=== PATIENT | male | born 1950 | race Caucasian/White ===

== ENCOUNTER 2022-07-11 13:21 | Inpatient (IN) | payer BC, MEDICAID ==
[~2022-07-11] VITALS: Ht 170.2 cm; Wt 69.4 kg
[~2022-07-11 13:21] MED LIST: DOCU-138 PO; METH500T PO; METO-293 PO; OMEP20CA4 PO; SITA1TAB4 PO; TAMS-11 PO; coumadin; insulin
[2022-07-11] MEDS ORDERED: LEVOFLOXACIN 250MG PREMIX 50 ML IV ONE (15:30)
[2022-07-11] MEDS ORDERED: SODIUM CHLORIDE 0.9% 1000ML BAG (SEPSIS BOLUS) IV ONE (15:30)
[2022-07-11 15:35] LABS: BASOPHILS % 0.3 % (0.0-2.0); EOSINOPHILS % 0.6 % (0.0-5.0); HEMOGLOBIN. 7.3 g/dL (14.0-18.0); LYMPHOCYTES % 9.3 % (20.0-50.0); MEAN CORPUSCULAR HEMOGLOBIN 27.4 pg (28.0-32.0); MEAN CORPUSCULAR VOLUME 86.4 fL (80.0-94.0); MEAN PLATELET VOLUME 10.2 fl (7.4-10.4); MONOCYTES % 4.7 % (2.0-8.0); NEUTROPHILS % 85.1 % (40.0-76.0); PLATELET 79 x1000/uL (130-400); RED BLOOD CELL COUNT 2.66 mill/uL (4.7-6.1)
[2022-07-11 15:41] LABS: BG BASE EXCESS -8.5 mmol/L (-2.0-2.0); BG CARBOXYHEMOGLOBIN 0.2 % (0.5-1.5); BG DEOXYHEMOGLOBIN 7.5 % (0.0-5.0); BG FRACTION INSPIRED OXYGEN 21; BG HCO3 ACT 17.5 mmol/L (22.0-26.0); BG METHEMOGLOBIN 1.2 % (0.0-1.5); BG OXYGEN SATURATION 92.4 % (92.0-98.5); BG OXYHEMOGLOBIN 91.1 % (94.0-97.0); BG PCO2 38.1 mmHg (35.0-45.0); BG PH 7.281 (7.350-7.450); BG PO2 79.8 mmHg (75.0-100.0); BG SAMPLE SITE RIGHT RADIAL; BG TOTAL HEMOGLOBIN 8.5 g/dL (12.0-18.0); BG VENT MODE ROOM AIR
[2022-07-11 15:43] LABS: CHLORIDE 119 mEq/L (98-107)
[2022-07-11] MEDS ORDERED: DOPAMINE 400MG/250ML PREMIX 250 ML IV ONE (15:45)
[2022-07-11 15:52] LABS: INR 1.2
[2022-07-11] MEDS ORDERED: SODIUM BICARBONATE 8.4% 1 MEQ/ML 50ML SYR IV ONE (16:00)
[2022-07-11] MEDS ORDERED: MORPHINE SULFATE 2 MG/ML CPJ (NOT FOR IM USE) IV PRN (16:15)
[2022-07-11] MEDS ORDERED: ONDANSETRON HCL 4MG/2ML INJ IV PRN (16:15)
[2022-07-11] MEDS ORDERED: NALOXONE HCL 0.4MG/ML VIAL IV PRN (16:30)
[2022-07-11] MEDS ORDERED: DOPAMINE 800MG PREMIX (DOUBLE) 250 ML IV PRN ×2 (16:30→23:45)
[2022-07-11] MEDS: SODIUM CHLORIDE 0.9% 1,000 ML IV SCH (16:30)
[2022-07-11] MEDS ORDERED: PIPERACILLIN/TAZ 3.375G PREMIX 50 ML IV NR (16:30)
[2022-07-11] MEDS ORDERED: VANCOMYCIN 1500MG in DEXTROSE 5% WATER 250ML IV NR (17:00)
[2022-07-11] MEDS ORDERED: SODIUM BICARBONATE 8.4% 1 MEQ/ML 50ML SYR IV NR (19:00)
[2022-07-11 21:36] LABS: T4 FREE 1.32 ng/dL (0.76-1.46)
[2022-07-12] VITALS (62 sets, daily range): BP systolic 103–154; BP diastolic 47–80
[2022-07-12] MEDS ORDERED: MIDAZOLAM HCL 5 MG/5 ML VIAL IV ONE (02:00)
[2022-07-12] MEDS ORDERED: SUCCINYLCHOLINE CHLORIDE 200MG/10ML IV ONE ×2 (02:00→08:28)
[2022-07-12] MEDS ORDERED: FENTANYL 2500MCG/250ML PMX 250 ML IV ONE (02:00)
[2022-07-12] MEDS ORDERED: MIDAZOLAM HCL 2 MG/2 ML VIAL IV NR (02:15)
[2022-07-12] MEDS ORDERED: FENTANYL 2500MCG/250ML PMX 250 ML IV NR (02:15)
[2022-07-12 02:30] LABS: BG BASE EXCESS -8.1 mmol/L (-2.0-2.0); BG CARBOXYHEMOGLOBIN 0.8 % (0.5-1.5); BG FRACTION INSPIRED OXYGEN 40; BG HCO3 ACT 17.3 mmol/L (22.0-26.0); BG METHEMOGLOBIN 0.1 % (0.0-1.5); BG OXYHEMOGLOBIN 94.1 % (94.0-97.0); BG PCO2 34.7 mmHg (35.0-45.0); BG PH 7.315 (7.350-7.450); BG PO2 95.6 mmHg (75.0-100.0); BG SAMPLE SITE RIGHT RADIAL; BG TOTAL HEMOGLOBIN 9.5 g/dL (12.0-18.0); BG VENT MODE VENT - AC
[2022-07-12] MEDS ORDERED: SODI650T MT (03:53)
[2022-07-12] MEDS ORDERED: FAMO20TA8 MT (03:53)
[2022-07-12] MEDS ORDERED: AMLO10TA80 MT (03:53)
[2022-07-12] MEDS ORDERED: CARV25TA47 MT (03:53)
[2022-07-12] MEDS ORDERED: HYDR-4135 MT (03:53)
[2022-07-12] MEDS ORDERED: FURO40TA5 MT (03:53)
[2022-07-12] MEDS ORDERED: *PATIENT'S OWN MEDICATION STORAGE XX SCH (04:00)
[2022-07-12] MEDS ORDERED: FENTANYL 2500MCG/250ML PMX 250 ML IV PRN (04:15)
[2022-07-12] MEDS ORDERED: DEXTROSE 50% WATER 50ML SYRINGE IV PRN (04:15)
[2022-07-12 05:35] LABS: HEMATOCRIT. 26.7 % (42.0-52.0); HEMOGLOBIN. 8.7 g/dL (14.0-18.0); MEAN CORPUSCULAR HEMOGLOBIN 27.7 pg (28.0-32.0); MEAN CORPUSCULAR VOLUME 85.4 fL (80.0-94.0); MEAN PLATELET VOLUME 10.6 fl (7.4-10.4); PLATELET 122 x1000/uL (130-400); RED BLOOD CELL COUNT 3.13 mill/uL (4.7-6.1); RED CELL DISTRIBUTION WIDTH 15.6 % (11.6-14.6)
[2022-07-12] MEDS: BLOOD SUGAR DIAGNOSTIC STRIP TEST SCH ×4 (06:00→23:44)
[2022-07-12] MEDS: INSULIN LISPRO 100 UNITS/ML SUBCUT SCH ×4 (06:00→23:44)
[2022-07-12 06:18] LABS: CLARITY URINE TURBID (CLEAR); COLOR URINE DARK YELLOW (YELLOW); KETONES URINE TRACE (NEGATIVE); LEUKOCYTE ESTERASE URINE 3+ (NEGATIVE); NITRITE URINE NEGATIVE (NEGATIVE); OCCULT BLOOD URINE 3+ (NEGATIVE); PROTEIN URINE 3+ (NEGATIVE); SPECIFIC GRAVITY URINE 1.019 (1.005-1.030)
[2022-07-12 06:54] LABS: CHLORIDE 117 mEq/L (98-107)
[2022-07-12] MEDS ORDERED: DOPAMINE 400MG/250ML PREMIX 250 ML IV PRN (07:45)
[2022-07-12] MEDS ORDERED: ETOMIDATE 2MG/ML 10ML VIAL IV ONE (08:28)
[2022-07-12] MEDS ORDERED: SODIUM POLYSTYRENE SULFONATE 15 G/60 ML BOT PO NR (08:30)
[2022-07-12] MEDS ORDERED: PIPERACILLIN/TAZOBACTAM 3.375 G in DEXTROSE 5% WATER 50 ML IV SCH (09:00)
[2022-07-12] MEDS: FUROSEMIDE 40MG/4ML VIAL IVP SCH ×2 (09:06→17:13)
[2022-07-12] MEDS: CITRIC ACID/SODIUM CITRATE SOLN 30ML UDC PO SCH ×3 (09:06→17:13)
[2022-07-12 09:32] LABS: BG CARBOXYHEMOGLOBIN 0.1 % (0.5-1.5); BG DEOXYHEMOGLOBIN 5.2 % (0.0-5.0); BG FRACTION INSPIRED OXYGEN 40; BG HCO3 ACT 17.3 mmol/L (22.0-26.0); BG METHEMOGLOBIN 0.3 % (0.0-1.5); BG OXYGEN SATURATION 94.8 % (92.0-98.5); BG OXYHEMOGLOBIN 94.4 % (94.0-97.0); BG PCO2 29.8 mmHg (35.0-45.0); BG PH 7.381 (7.350-7.450); BG SAMPLE SITE RIGHT RADIAL; BG TOTAL HEMOGLOBIN 8.6 g/dL (12.0-18.0); BG VENT MODE VENT - AC
[2022-07-12 11:34] LABS: T4 FREE 1.38 ng/dL (0.76-1.46)
[2022-07-12 12:02] LABS: PLATELET ESTIMATE DECREASED
[2022-07-12] MEDS: PIPERACILLIN/TAZOBACTAM 3.375 G in DEXTROSE 5% WATER 50 ML IV SCH ×2 (12:35→23:09)
[2022-07-12 13:33] LABS: BG BASE EXCESS -6.7 mmol/L (-2.0-2.0); BG CARBOXYHEMOGLOBIN 0.5 % (0.5-1.5); BG DEOXYHEMOGLOBIN 6.8 % (0.0-5.0); BG FRACTION INSPIRED OXYGEN 40; BG HCO3 ACT 18.8 mmol/L (22.0-26.0); BG METHEMOGLOBIN 0.5 % (0.0-1.5); BG OXYGEN SATURATION 93.1 % (92.0-98.5); BG OXYHEMOGLOBIN 92.2 % (94.0-97.0); BG PCO2 37.3 mmHg (35.0-45.0); BG PO2 70.3 mmHg (75.0-100.0); BG SAMPLE SITE RIGHT RADIAL; BG TOTAL HEMOGLOBIN 8.7 g/dL (12.0-18.0); BG VENT MODE VENT - CPAP
[2022-07-12] MEDS: PANTOPRAZOLE 40MG DR TABLET PO SCH (21:33)
[2022-07-13] VITALS (86 sets, daily range): BP systolic 100–179; BP diastolic 50–120
[2022-07-13 05:31] LABS: HEMATOCRIT. 23.4 % (42.0-52.0); HEMOGLOBIN. 7.5 g/dL (14.0-18.0); MEAN CORPUSCULAR HEMOGLOBIN 27.7 pg (28.0-32.0); MEAN CORPUSCULAR VOLUME 85.9 fL (80.0-94.0); MEAN PLATELET VOLUME 10.8 fl (7.4-10.4); PLATELET 95 x1000/uL (130-400); RED BLOOD CELL COUNT 2.72 mill/uL (4.7-6.1); RED CELL DISTRIBUTION WIDTH 16.2 % (11.6-14.6)
[2022-07-13] MEDS: INSULIN LISPRO 100 UNITS/ML SUBCUT SCH ×3 (06:00→17:02)
[2022-07-13] MEDS: BLOOD SUGAR DIAGNOSTIC STRIP TEST SCH ×3 (06:03→17:02)
[2022-07-13] MEDS: PANTOPRAZOLE 40MG DR TABLET PO SCH ×2 (06:06→21:59)
[2022-07-13 07:43] LABS: PLATELET ESTIMATE DECREASED
[2022-07-13] MEDS ORDERED: SODIUM POLYSTYRENE SULFONATE 15 G/60 ML BOT PO NR (07:45)
[2022-07-13] MEDS: CITRIC ACID/SODIUM CITRATE SOLN 30ML UDC PO SCH ×3 (08:36→17:02)
[2022-07-13] MEDS: PIPERACILLIN/TAZOBACTAM 3.375 G in DEXTROSE 5% WATER 50 ML IV SCH ×2 (08:36→21:59)
[2022-07-13] MEDS: FUROSEMIDE 40MG/4ML VIAL IVP SCH ×2 (08:36→17:02)
[2022-07-13 12:11] LABS: HEPATITIS B SURFACE ANTIGEN NEGATIVE
[2022-07-13] MEDS ORDERED: ALBUTEROL (0.083%) 2.5MG/3ML NEB HHN PRN (14:00)
[2022-07-13] MEDS ORDERED: IPRATROPIUM BROMIDE (0.02%) 0.5MG/2.5ML NEB HHN PRN (14:00)
[2022-07-13] MEDS ORDERED: AMLODIPINE 5MG TABLET PO SCH (15:15)
[2022-07-13] MEDS: AMLODIPINE 5MG TABLET PO SCH (16:02)
[2022-07-13] MEDS ORDERED: VANCOMYCIN 750MG PREMIX 150 ML IV SCH (18:00)
[2022-07-13] MEDS: HYDRALAZINE HCL 25MG TABLET PO SCH (18:59)
[2022-07-13] MEDS: EPOETIN ALFA-EPBX 4,000 UNIT/ML VIAL SUBCUT SCH (21:59)
[2022-07-14] VITALS (10 sets, daily range): BP systolic 140–156; BP diastolic 48–74
[2022-07-14] MEDS: BLOOD SUGAR DIAGNOSTIC STRIP TEST SCH ×4 (00:03→17:28)
[2022-07-14] MEDS: INSULIN LISPRO 100 UNITS/ML SUBCUT SCH ×4 (06:00→17:28)
[2022-07-14 06:49] LABS: BASOPHILS % 0.7 % (0.0-2.0); EOSINOPHILS % 1.2 % (0.0-5.0); HEMATOCRIT. 21.7 % (42.0-52.0); HEMOGLOBIN. 7.4 g/dL (14.0-18.0); MEAN CORPUSCULAR HEMOGLOBIN 28.9 pg (28.0-32.0); MEAN CORPUSCULAR VOLUME 85.1 fL (80.0-94.0); MEAN PLATELET VOLUME 11.1 fl (7.4-10.4); MONOCYTES % 5.6 % (2.0-8.0); NEUTROPHILS % 84.5 % (40.0-76.0); PLATELET 61 x1000/uL (130-400); RED BLOOD CELL COUNT 2.55 mill/uL (4.7-6.1)
[2022-07-14] MEDS: AMLODIPINE 5MG TABLET PO SCH (08:18)
[2022-07-14] MEDS: PANTOPRAZOLE 40MG DR TABLET PO SCH ×2 (08:18→20:37)
[2022-07-14] MEDS: HYDRALAZINE HCL 25MG TABLET PO SCH ×2 (08:18→20:37)
[2022-07-14] MEDS: FUROSEMIDE 40MG/4ML VIAL IVP SCH ×2 (08:18→16:36)
[2022-07-14] MEDS: CITRIC ACID/SODIUM CITRATE SOLN 30ML UDC PO SCH (08:18)
[2022-07-14] MEDS: PIPERACILLIN/TAZOBACTAM 3.375 G in DEXTROSE 5% WATER 50 ML IV SCH ×2 (08:25→20:37)
[2022-07-14] MEDS ORDERED: VANCOMYCIN 750MG PREMIX 150 ML IV NR (10:00)
[2022-07-15] VITALS (10 sets, daily range): BP systolic 140–189; BP diastolic 49–89
[2022-07-15] MEDS: BLOOD SUGAR DIAGNOSTIC STRIP TEST SCH ×4 (00:22→17:16)
[2022-07-15] MEDS: INSULIN LISPRO 100 UNITS/ML SUBCUT SCH ×4 (06:00→17:16)
[2022-07-15] MEDS: PIPERACILLIN/TAZOBACTAM 3.375 G in DEXTROSE 5% WATER 50 ML IV SCH ×2 (08:33→21:02)
[2022-07-15] MEDS: PANTOPRAZOLE 40MG DR TABLET PO SCH ×2 (08:34→21:02)
[2022-07-15] MEDS: HYDRALAZINE HCL 25MG TABLET PO SCH ×2 (08:34→21:03)
[2022-07-15] MEDS: AMLODIPINE 5MG TABLET PO SCH (08:34)
[2022-07-15] MEDS: FUROSEMIDE 40MG/4ML VIAL IVP SCH ×2 (08:34→17:17)
[2022-07-15] MEDS ORDERED: VANCOMYCIN 500MG PREMIX 100 ML IV NR (21:00)
[2022-07-15] MEDS: GUAIFENESIN 600MG ER TABLET PO SCH (21:02)
[2022-07-15] MEDS: EPOETIN ALFA-EPBX 4,000 UNIT/ML VIAL SUBCUT SCH (21:02)
[2022-07-16] VITALS: BP 165/76
[2022-07-16] MEDS: BLOOD SUGAR DIAGNOSTIC STRIP TEST SCH ×4 (00:10→17:12)
[2022-07-16 04:00] VITALS: BP 144/55
[2022-07-16] MEDS: INSULIN LISPRO 100 UNITS/ML SUBCUT SCH ×4 (05:56→17:17)
[2022-07-16 06:48] LABS: BASOPHILS % 0.3 % (0.0-2.0); EOSINOPHILS % 2.1 % (0.0-5.0); HEMATOCRIT. 22.7 % (42.0-52.0); HEMOGLOBIN. 7.4 g/dL (14.0-18.0); LYMPHOCYTES % 7.9 % (20.0-50.0); MEAN CORPUSCULAR HEMOGLOBIN 27.9 pg (28.0-32.0); MEAN CORPUSCULAR VOLUME 85.7 fL (80.0-94.0); MEAN PLATELET VOLUME 10.7 fl (7.4-10.4); MONOCYTES % 8.9 % (2.0-8.0); NEUTROPHILS % 80.8 % (40.0-76.0); PLATELET 89 x1000/uL (130-400); RED BLOOD CELL COUNT 2.65 mill/uL (4.7-6.1)
[2022-07-16 08:00] VITALS: BP 148/64
[2022-07-16] MEDS: DOCUSATE SODIUM 100MG CAPSULE PO PRN (08:09)
[2022-07-16] MEDS: PANTOPRAZOLE 40MG DR TABLET PO SCH ×2 (08:09→20:28)
[2022-07-16] MEDS: FUROSEMIDE 40MG/4ML VIAL IVP SCH ×2 (08:10→17:20)
[2022-07-16] MEDS: PIPERACILLIN/TAZOBACTAM 3.375 G in DEXTROSE 5% WATER 50 ML IV SCH ×2 (08:21→20:28)
[2022-07-16] MEDS: GUAIFENESIN 600MG ER TABLET PO SCH ×2 (08:21→20:28)
[2022-07-16] MEDS: HYDRALAZINE HCL 25MG TABLET PO SCH ×2 (08:22→20:28)
[2022-07-16] MEDS: AMLODIPINE 5MG TABLET PO SCH (08:22)
[2022-07-16 12:00] VITALS: BP 145/58
[2022-07-16] MEDS: ALBUTEROL (0.083%) 2.5MG/3ML NEB HHN SCH ×2 (14:50→21:48)
[2022-07-16] MEDS: IPRATROPIUM BROMIDE (0.02%) 0.5MG/2.5ML NEB HHN SCH ×2 (14:50→21:49)
[2022-07-16 15:08] LABS: TOTAL IRON BINDING CAPACITY 283 ug/dL (250-450)
[2022-07-16 16:00] VITALS: BP 156/73
[2022-07-16 20:00] VITALS: BP 146/59
[2022-07-17] VITALS (14 sets, daily range): BP systolic 142–177; BP diastolic 57–76
[2022-07-17] MEDS: INSULIN LISPRO 100 UNITS/ML SUBCUT SCH ×4 (01:26→18:00)
[2022-07-17] MEDS: BLOOD SUGAR DIAGNOSTIC STRIP TEST SCH ×4 (01:26→18:00)
[2022-07-17] MEDS: IPRATROPIUM BROMIDE (0.02%) 0.5MG/2.5ML NEB HHN SCH ×4 (03:09→20:47)
[2022-07-17] MEDS: ALBUTEROL (0.083%) 2.5MG/3ML NEB HHN SCH ×4 (03:09→20:47)
[2022-07-17] MEDS: FUROSEMIDE 40MG/4ML VIAL IVP SCH ×2 (06:10→17:08)
[2022-07-17 07:16] LABS: INR 1.2; PARTIAL THROMBOPLASTIN TIME 36.5 sec (23.4-31.0); PROTHROMBIN TIME 12.7 sec (9.6-11.0)
[2022-07-17 07:22] LABS: BASOPHILS % 0.4 % (0.0-2.0); EOSINOPHILS % 3.2 % (0.0-5.0); HEMATOCRIT. 22.6 % (42.0-52.0); HEMOGLOBIN. 7.4 g/dL (14.0-18.0); LYMPHOCYTES % 8.6 % (20.0-50.0); MEAN CORPUSCULAR HEMOGLOBIN 27.6 pg (28.0-32.0); MEAN CORPUSCULAR VOLUME 84.2 fL (80.0-94.0); MONOCYTES % 8.8 % (2.0-8.0); PLATELET 94 x1000/uL (130-400); RED BLOOD CELL COUNT 2.68 mill/uL (4.7-6.1); RED CELL DISTRIBUTION WIDTH 15.7 % (11.6-14.6)
[2022-07-17] MEDS: PANTOPRAZOLE 40MG DR TABLET PO SCH ×2 (07:40→21:56)
[2022-07-17] MEDS ORDERED: ENOXAPARIN 30MG/0.3ML SYR SUBCUT SCH (09:00)
[2022-07-17] MEDS: HYDRALAZINE HCL 25MG TABLET PO SCH ×2 (09:00→21:56)
[2022-07-17] MEDS: AMLODIPINE 5MG TABLET PO SCH (09:00)
[2022-07-17] MEDS ORDERED: POTASSIUM CHLORIDE 20MEQ TABLET SR PO NR (09:45)
[2022-07-17] MEDS: GUAIFENESIN 600MG ER TABLET PO SCH ×2 (14:17→21:56)
[2022-07-18] VITALS (77 sets, daily range): BP systolic 121–185; BP diastolic 54–106
[2022-07-18] MEDS: PROPOFOL 10MG/ML 100ML 100 ML IV PRN ×4 (00:40→19:51)
[2022-07-18 01:57] LABS: BG BASE EXCESS 0.7 mmol/L (-2.0-2.0); BG CARBOXYHEMOGLOBIN 0.6 % (0.5-1.5); BG DEOXYHEMOGLOBIN 1.2 % (0.0-5.0); BG FRACTION INSPIRED OXYGEN 100; BG HCO3 ACT 26.4 mmol/L (22.0-26.0); BG METHEMOGLOBIN 0.2 % (0.0-1.5); BG OXYGEN SATURATION 98.8 % (92.0-98.5); BG PCO2 48.4 mmHg (35.0-45.0); BG PH 7.355 (7.350-7.450); BG PO2 162.4 mmHg (75.0-100.0); BG SAMPLE SITE RIGHT RADIAL; BG TOTAL HEMOGLOBIN 7.7 g/dL (12.0-18.0); BG VENT MODE VENT - AC
[2022-07-18 05:29] LABS: HEMATOCRIT. 21.4 % (42.0-52.0); MEAN CORPUSCULAR HEMOGLOBIN 27.8 pg (28.0-32.0); MEAN CORPUSCULAR VOLUME 85.6 fL (80.0-94.0); MEAN PLATELET VOLUME 9.8 fl (7.4-10.4); PLATELET 94 x1000/uL (130-400); RED CELL DISTRIBUTION WIDTH 15.7 % (11.6-14.6)
[2022-07-18] MEDS: INSULIN LISPRO 100 UNITS/ML SUBCUT SCH ×5 (05:55→23:59)
[2022-07-18] MEDS: BLOOD SUGAR DIAGNOSTIC STRIP TEST SCH ×5 (05:55→23:59)
[2022-07-18 07:14] LABS: HEMOGLOBIN. 6.9 g/dL (14.0-18.0)
[2022-07-18] MEDS: IPRATROPIUM BROMIDE (0.02%) 0.5MG/2.5ML NEB HHN SCH ×3 (08:31→20:34)
[2022-07-18] MEDS: ALBUTEROL (0.083%) 2.5MG/3ML NEB HHN SCH ×3 (08:31→20:34)
[2022-07-18] MEDS: FUROSEMIDE 40MG/4ML VIAL IVP SCH ×2 (09:28→18:07)
[2022-07-18] MEDS: AMLODIPINE 5MG TABLET PO SCH (09:28)
[2022-07-18] MEDS: HYDRALAZINE HCL 25MG TABLET PO SCH ×2 (09:28→21:47)
[2022-07-18] MEDS: PANTOPRAZOLE 40MG DR TABLET PO SCH (09:28)
[2022-07-18] MEDS ORDERED: SODIUM BICARBONATE 8.4% 1 MEQ/ML 50ML SYR IV ONE (10:21)
[2022-07-18] MEDS ORDERED: EPINEPHRINE 0.1MG/ML (1:10,000) 10ML SYR ONE (10:21)
[2022-07-18] MEDS ORDERED: DOPAMINE 400MG/250ML PREMIX 250 ML IV PRN (11:00)
[2022-07-18 12:20] LABS: PLATELET ESTIMATE SLIGHTLY DECREASED
[2022-07-18] MEDS ORDERED: CEFTRIAXONE 1 G PREMIX 50 ML IV SCH (12:30)
[2022-07-18] MEDS: PANTOPRAZOLE SODIUM 40 MG/VIAL IV SCH (12:42)
[2022-07-18] MEDS: GUAIFENESIN 200MG/10ML SUGAR FREE UDC NG SCH ×2 (12:42→18:07)
[2022-07-18] MEDS: CEFTRIAXONE 1,000 MG in DEXTROSE 5% WATER 50 ML IV SCH (15:00)
[2022-07-18 19:42] LABS: HEMATOCRIT 26.3 % (42.0-52.0); HEMOGLOBIN 8.6 g/dL (14.0-18.0)
[2022-07-18] MEDS ORDERED: LANSOPRAZOLE 15MG DR CAPSULE NG SCH (21:00)
[2022-07-18] MEDS: EPOETIN ALFA-EPBX 4,000 UNIT/ML VIAL SUBCUT SCH (21:51)
[2022-07-19] VITALS (60 sets, daily range): BP systolic 121–162; BP diastolic 49–79
[2022-07-19] MEDS: GUAIFENESIN 200MG/10ML SUGAR FREE UDC NG SCH ×4 (00:01→17:28)
[2022-07-19] MEDS: ALBUTEROL (0.083%) 2.5MG/3ML NEB HHN SCH ×4 (01:46→20:01)
[2022-07-19] MEDS: IPRATROPIUM BROMIDE (0.02%) 0.5MG/2.5ML NEB HHN SCH ×4 (01:46→20:01)
[2022-07-19] MEDS ORDERED: PROPOFOL 10MG/ML 100ML 100 ML IV PRN (04:00)
[2022-07-19] MEDS: INSULIN LISPRO 100 UNITS/ML SUBCUT SCH ×3 (05:16→17:28)
[2022-07-19] MEDS: BLOOD SUGAR DIAGNOSTIC STRIP TEST SCH ×3 (05:16→17:28)
[2022-07-19 06:01] LABS: HEMATOCRIT. 26.2 % (42.0-52.0); MEAN CORPUSCULAR HEMOGLOBIN 28.9 pg (28.0-32.0); MEAN PLATELET VOLUME 9.9 fl (7.4-10.4); PLATELET 106 x1000/uL (130-400); RED BLOOD CELL COUNT 3.12 mill/uL (4.7-6.1); RED CELL DISTRIBUTION WIDTH 15.9 % (11.6-14.6)
[2022-07-19] MEDS: PANTOPRAZOLE SODIUM 40 MG/VIAL IV SCH (08:27)
[2022-07-19] MEDS: FUROSEMIDE 40MG/4ML VIAL IVP SCH ×2 (08:27→17:27)
[2022-07-19] MEDS: AMLODIPINE 5MG TABLET PO SCH (08:28)
[2022-07-19] MEDS: HYDRALAZINE HCL 25MG TABLET PO SCH ×2 (08:28→21:00)
[2022-07-19 08:34] LABS: BG BASE EXCESS 1.1 mmol/L (-2.0-2.0); BG DEOXYHEMOGLOBIN 5.8 % (0.0-5.0); BG HCO3 ACT 25.5 mmol/L (22.0-26.0); BG METHEMOGLOBIN 0.3 % (0.0-1.5); BG OXYGEN SATURATION 94.1 % (92.0-98.5); BG OXYHEMOGLOBIN 92.9 % (94.0-97.0); BG PCO2 39.3 mmHg (35.0-45.0); BG PO2 68.4 mmHg (75.0-100.0); BG SAMPLE SITE RIGHT RADIAL; BG TOTAL HEMOGLOBIN 8.4 g/dL (12.0-18.0); BG VENT MODE VENT - AC
[2022-07-19] MEDS ORDERED: IPRATROPIUM/ALBUTEROL 0.5-3(2.5)MG/3ML NEB HHN PRN (12:15)
[2022-07-19] MEDS: PROPOFOL 10MG/ML 100ML 100 ML IV PRN ×2 (12:27→18:40)
[2022-07-19 13:31] LABS: PLATELET ESTIMATE SLIGHTLY DECREASED
[2022-07-19] MEDS: CEFTRIAXONE 1,000 MG in DEXTROSE 5% WATER 50 ML IV SCH (14:57)
[2022-07-20] VITALS (34 sets, daily range): BP systolic 140–167; BP diastolic 47–106
[2022-07-20] MEDS: IPRATROPIUM BROMIDE (0.02%) 0.5MG/2.5ML NEB HHN SCH ×3 (02:09→14:05)
[2022-07-20] MEDS: ALBUTEROL (0.083%) 2.5MG/3ML NEB HHN SCH ×3 (02:09→14:05)
[2022-07-20 05:39] LABS: HEMATOCRIT. 25.5 % (42.0-52.0); HEMOGLOBIN. 8.3 g/dL (14.0-18.0); MEAN CORPUSCULAR HEMOGLOBIN 27.9 pg (28.0-32.0); MEAN CORPUSCULAR VOLUME 85.6 fL (80.0-94.0); MEAN PLATELET VOLUME 9.8 fl (7.4-10.4); PLATELET 121 x1000/uL (130-400); RED BLOOD CELL COUNT 2.98 mill/uL (4.7-6.1); RED CELL DISTRIBUTION WIDTH 15.8 % (11.6-14.6)
[2022-07-20] MEDS: GUAIFENESIN 200MG/10ML SUGAR FREE UDC NG SCH ×4 (06:00→18:00)
[2022-07-20] MEDS: INSULIN LISPRO 100 UNITS/ML SUBCUT SCH ×4 (06:00→18:00)
[2022-07-20] MEDS: BLOOD SUGAR DIAGNOSTIC STRIP TEST SCH ×4 (06:53→18:00)
[2022-07-20] MEDS: FUROSEMIDE 40MG/4ML VIAL IVP SCH ×2 (08:30→16:27)
[2022-07-20 08:41] LABS: BG BASE EXCESS -0.1 mmol/L (-2.0-2.0); BG CARBOXYHEMOGLOBIN 0.3 % (0.5-1.5); BG FRACTION INSPIRED OXYGEN 45; BG HCO3 ACT 24.3 mmol/L (22.0-26.0); BG METHEMOGLOBIN 0.7 % (0.0-1.5); BG PCO2 38.5 mmHg (35.0-45.0); BG PH 7.418 (7.350-7.450); BG SAMPLE SITE RIGHT RADIAL; BG TOTAL HEMOGLOBIN 9.6 g/dL (12.0-18.0); BG VENT MODE VENT - AC
[2022-07-20] MEDS: HYDRALAZINE HCL 25MG TABLET PO SCH ×2 (09:52→21:19)
[2022-07-20] MEDS: AMLODIPINE 5MG TABLET PO SCH (09:52)
[2022-07-20] MEDS: PANTOPRAZOLE SODIUM 40 MG/VIAL IV SCH (09:53)
[2022-07-20 12:45] LABS: PLATELET ESTIMATE DECREASED
[2022-07-20 13:11] LABS: BG BASE EXCESS -1.3 mmol/L (-2.0-2.0); BG CARBOXYHEMOGLOBIN 0.3 % (0.5-1.5); BG DEOXYHEMOGLOBIN 2.9 % (0.0-5.0); BG FRACTION INSPIRED OXYGEN 40; BG HCO3 ACT 23.7 mmol/L (22.0-26.0); BG METHEMOGLOBIN 0.3 % (0.0-1.5); BG OXYGEN SATURATION 97.1 % (92.0-98.5); BG OXYHEMOGLOBIN 96.5 % (94.0-97.0); BG PCO2 40.7 mmHg (35.0-45.0); BG PH 7.383 (7.350-7.450); BG PO2 98.6 mmHg (75.0-100.0); BG SAMPLE SITE RIGHT RADIAL; BG TOTAL HEMOGLOBIN 9.4 g/dL (12.0-18.0); BG VENT MODE VENT - CPAP
[2022-07-20] MEDS: CEFTRIAXONE 1,000 MG in DEXTROSE 5% WATER 50 ML IV SCH (16:28)
[2022-07-21] VITALS (25 sets, daily range): BP systolic 121–162; BP diastolic 45–112
[2022-07-21] MEDS: BLOOD SUGAR DIAGNOSTIC STRIP TEST SCH ×4 (00:01→21:59)
[2022-07-21] MEDS: GUAIFENESIN 200MG/10ML SUGAR FREE UDC NG SCH ×4 (00:13→23:05)
[2022-07-21] MEDS: INSULIN LISPRO 100 UNITS/ML SUBCUT SCH ×4 (01:00→21:00)
[2022-07-21 05:41] LABS: BASOPHILS % 0.6 % (0.0-2.0); EOSINOPHILS % 7.1 % (0.0-5.0); HEMATOCRIT. 26.4 % (42.0-52.0); HEMOGLOBIN. 8.6 g/dL (14.0-18.0); LYMPHOCYTES % 7.9 % (20.0-50.0); MEAN CORPUSCULAR VOLUME 85.7 fL (80.0-94.0); MEAN PLATELET VOLUME 9.3 fl (7.4-10.4); MONOCYTES % 7.7 % (2.0-8.0); NEUTROPHILS % 76.7 % (40.0-76.0); PLATELET 158 x1000/uL (130-400); RED BLOOD CELL COUNT 3.07 mill/uL (4.7-6.1); RED CELL DISTRIBUTION WIDTH 16.2 % (11.6-14.6)
[2022-07-21] MEDS: FUROSEMIDE 40MG/4ML VIAL IVP SCH (06:15)
[2022-07-21] MEDS ORDERED: BLOOD SUGAR DIAGNOSTIC STRIP TEST SCH (07:50)
[2022-07-21] MEDS: PANTOPRAZOLE SODIUM 40 MG/VIAL IV SCH (09:26)
[2022-07-21] MEDS: AMLODIPINE 5MG TABLET PO SCH (09:27)
[2022-07-21] MEDS: HYDRALAZINE HCL 25MG TABLET PO SCH ×2 (09:28→22:00)
[2022-07-21] MEDS: IPRATROPIUM BROMIDE (0.02%) 0.5MG/2.5ML NEB HHN SCH ×2 (13:25→22:35)
[2022-07-21] MEDS: ALBUTEROL (0.083%) 2.5MG/3ML NEB HHN SCH ×2 (13:26→22:36)
[2022-07-21] MEDS: CEFTRIAXONE 1,000 MG in DEXTROSE 5% WATER 50 ML IV SCH (16:55)
[2022-07-21] MEDS ORDERED: IPRATROPIUM BROMIDE (0.02%) 0.5MG/2.5ML NEB HHN PRN (17:45)
[2022-07-21] MEDS ORDERED: ALBUTEROL (0.083%) 2.5MG/3ML NEB HHN PRN (17:45)
[2022-07-22] VITALS (16 sets, daily range): BP systolic 113–148; BP diastolic 40–60
[2022-07-22] MEDS: IPRATROPIUM BROMIDE (0.02%) 0.5MG/2.5ML NEB HHN SCH ×4 (03:35→21:03)
[2022-07-22] MEDS: ALBUTEROL (0.083%) 2.5MG/3ML NEB HHN SCH ×4 (03:36→21:04)
[2022-07-22] MEDS: ACETAMINOPHEN 325MG TABLET PO PRN (06:20)
[2022-07-22] MEDS: GUAIFENESIN 200MG/10ML SUGAR FREE UDC NG SCH ×4 (06:20→23:04)
[2022-07-22] MEDS: INSULIN LISPRO 100 UNITS/ML SUBCUT SCH ×4 (07:40→21:35)
[2022-07-22] MEDS: BLOOD SUGAR DIAGNOSTIC STRIP TEST SCH ×4 (08:08→21:23)
[2022-07-22] MEDS: PANTOPRAZOLE SODIUM 40 MG/VIAL IV SCH (09:07)
[2022-07-22] MEDS: FUROSEMIDE 40MG/4ML VIAL IVP SCH (09:09)
[2022-07-22] MEDS: HYDRALAZINE HCL 25MG TABLET PO SCH ×2 (09:09→21:24)
[2022-07-22] MEDS: AMLODIPINE 5MG TABLET PO SCH (09:09)
[2022-07-22 11:24] LABS: BASOPHILS % 0.5 % (0.0-2.0); EOSINOPHILS % 5.6 % (0.0-5.0); HEMATOCRIT. 24.3 % (42.0-52.0); HEMOGLOBIN. 7.9 g/dL (14.0-18.0); LYMPHOCYTES % 7.1 % (20.0-50.0); MEAN CORPUSCULAR HEMOGLOBIN 27.7 pg (28.0-32.0); MEAN CORPUSCULAR VOLUME 85.1 fL (80.0-94.0); MEAN PLATELET VOLUME 8.5 fl (7.4-10.4); MONOCYTES % 8.7 % (2.0-8.0); NEUTROPHILS % 78.1 % (40.0-76.0); PLATELET 152 x1000/uL (130-400); RED BLOOD CELL COUNT 2.86 mill/uL (4.7-6.1); RED CELL DISTRIBUTION WIDTH 15.9 % (11.6-14.6)
[2022-07-22] MEDS: CEFTRIAXONE 1,000 MG in DEXTROSE 5% WATER 50 ML IV SCH (14:39)
[2022-07-23 00:20] VITALS: BP 91/42
[2022-07-23] MEDS: ALBUTEROL (0.083%) 2.5MG/3ML NEB HHN SCH ×4 (03:45→19:43)
[2022-07-23] MEDS: IPRATROPIUM BROMIDE (0.02%) 0.5MG/2.5ML NEB HHN SCH ×4 (03:45→19:43)
[2022-07-23 04:00] VITALS: BP 148/51
[2022-07-23] MEDS: GUAIFENESIN 200MG/10ML SUGAR FREE UDC NG SCH ×4 (05:02→23:12)
[2022-07-23 06:27] LABS: BASOPHILS % 0.5 % (0.0-2.0); EOSINOPHILS % 6.4 % (0.0-5.0); HEMATOCRIT. 25.8 % (42.0-52.0); HEMOGLOBIN. 8.3 g/dL (14.0-18.0); LYMPHOCYTES % 8.9 % (20.0-50.0); MEAN CORPUSCULAR HEMOGLOBIN 27.5 pg (28.0-32.0); MEAN CORPUSCULAR VOLUME 85.4 fL (80.0-94.0); MEAN PLATELET VOLUME 9.1 fl (7.4-10.4); MONOCYTES % 8.7 % (2.0-8.0); NEUTROPHILS % 75.5 % (40.0-76.0); PLATELET 166 x1000/uL (130-400); RED BLOOD CELL COUNT 3.02 mill/uL (4.7-6.1); RED CELL DISTRIBUTION WIDTH 16.1 % (11.6-14.6)
[2022-07-23] MEDS: BLOOD SUGAR DIAGNOSTIC STRIP TEST SCH ×4 (06:40→21:03)
[2022-07-23] MEDS: INSULIN LISPRO 100 UNITS/ML SUBCUT SCH ×4 (07:40→21:03)
[2022-07-23 08:08] VITALS: BP 131/54
[2022-07-23] MEDS: FUROSEMIDE 40MG/4ML VIAL IVP SCH (09:20)
[2022-07-23] MEDS: AMLODIPINE 5MG TABLET PO SCH (09:20)
[2022-07-23] MEDS: PANTOPRAZOLE SODIUM 40 MG/VIAL IV SCH (09:20)
[2022-07-23] MEDS: HYDRALAZINE HCL 25MG TABLET PO SCH ×2 (09:21→21:02)
[2022-07-23 12:00] VITALS: BP 129/55
[2022-07-23] MEDS: CEFTRIAXONE 1,000 MG in DEXTROSE 5% WATER 50 ML IV SCH (14:59)
[2022-07-23 16:36] VITALS: BP 156/63
[2022-07-23 20:56] VITALS: BP 130/48
[2022-07-24] VITALS (13 sets, daily range): BP systolic 108–142; BP diastolic 45–62
[2022-07-24] MEDS: ALBUTEROL (0.083%) 2.5MG/3ML NEB HHN SCH ×4 (01:36→20:59)
[2022-07-24] MEDS: IPRATROPIUM BROMIDE (0.02%) 0.5MG/2.5ML NEB HHN SCH ×4 (01:36→21:00)
[2022-07-24] MEDS: GUAIFENESIN 200MG/10ML SUGAR FREE UDC NG SCH ×3 (05:30→17:29)
[2022-07-24] MEDS: BLOOD SUGAR DIAGNOSTIC STRIP TEST SCH ×4 (06:41→21:00)
[2022-07-24] MEDS: INSULIN LISPRO 100 UNITS/ML SUBCUT SCH ×4 (07:40→21:00)
[2022-07-24] MEDS: AMLODIPINE 5MG TABLET PO SCH (08:50)
[2022-07-24] MEDS: HYDRALAZINE HCL 25MG TABLET PO SCH ×2 (08:50→21:00)
[2022-07-24] MEDS: FAMOTIDINE 20MG/2ML VIAL IV SCH (08:50)
[2022-07-24] MEDS: FUROSEMIDE 40MG/4ML VIAL IVP SCH (08:50)
[2022-07-24 10:07] LABS: BASOPHILS % 0.6 % (0.0-2.0); EOSINOPHILS % 6.1 % (0.0-5.0); HEMATOCRIT. 26.3 % (42.0-52.0); HEMOGLOBIN. 8.4 g/dL (14.0-18.0); LYMPHOCYTES % 9.1 % (20.0-50.0); MEAN CORPUSCULAR HEMOGLOBIN 27.4 pg (28.0-32.0); MEAN CORPUSCULAR VOLUME 85.4 fL (80.0-94.0); MEAN PLATELET VOLUME 8.9 fl (7.4-10.4); MONOCYTES % 7.4 % (2.0-8.0); NEUTROPHILS % 76.8 % (40.0-76.0); PLATELET 186 x1000/uL (130-400); RED BLOOD CELL COUNT 3.08 mill/uL (4.7-6.1); RED CELL DISTRIBUTION WIDTH 16.1 % (11.6-14.6)
[2022-07-24] MEDS: CEFTRIAXONE 1,000 MG in DEXTROSE 5% WATER 50 ML IV SCH (16:03)
[2022-07-25 00:42] VITALS: BP 131/53
[2022-07-25] MEDS: IPRATROPIUM BROMIDE (0.02%) 0.5MG/2.5ML NEB HHN SCH ×4 (00:56→20:53)
[2022-07-25] MEDS: ALBUTEROL (0.083%) 2.5MG/3ML NEB HHN SCH ×4 (00:56→20:53)
[2022-07-25 04:00] VITALS: BP 135/45
[2022-07-25] MEDS: GUAIFENESIN 200MG/10ML SUGAR FREE UDC NG SCH ×4 (06:00→18:02)
[2022-07-25 06:10] LABS: BASOPHILS % 0.6 % (0.0-2.0); EOSINOPHILS % 6.5 % (0.0-5.0); HEMATOCRIT. 24.9 % (42.0-52.0); HEMOGLOBIN. 8.1 g/dL (14.0-18.0); LYMPHOCYTES % 8.9 % (20.0-50.0); MEAN CORPUSCULAR HEMOGLOBIN 27.6 pg (28.0-32.0); MEAN CORPUSCULAR VOLUME 84.3 fL (80.0-94.0); MEAN PLATELET VOLUME 8.8 fl (7.4-10.4); MONOCYTES % 8.7 % (2.0-8.0); NEUTROPHILS % 75.3 % (40.0-76.0); PLATELET 181 x1000/uL (130-400); RED BLOOD CELL COUNT 2.95 mill/uL (4.7-6.1); RED CELL DISTRIBUTION WIDTH 15.6 % (11.6-14.6)
[2022-07-25] MEDS: INSULIN LISPRO 100 UNITS/ML SUBCUT SCH ×4 (07:40→21:00)
[2022-07-25] MEDS: BLOOD SUGAR DIAGNOSTIC STRIP TEST SCH ×4 (07:40→21:00)
[2022-07-25 08:00] VITALS: BP 140/57
[2022-07-25] MEDS: HYDRALAZINE HCL 25MG TABLET PO SCH ×2 (08:37→21:57)
[2022-07-25] MEDS: DOCUSATE SODIUM 100MG CAPSULE PO PRN (08:37)
[2022-07-25] MEDS: FUROSEMIDE 40MG/4ML VIAL IVP SCH (08:38)
[2022-07-25] MEDS: AMLODIPINE 5MG TABLET PO SCH (08:38)
[2022-07-25] MEDS: FAMOTIDINE 20MG/2ML VIAL IV SCH (08:38)
[2022-07-25 12:00] VITALS: BP 157/58
[2022-07-25] MEDS: CEFTRIAXONE 1,000 MG in DEXTROSE 5% WATER 50 ML IV SCH (14:05)
[2022-07-25 16:00] VITALS: BP 138/60
[2022-07-25 20:00] VITALS: BP 150/88
[2022-07-25] MEDS: ACETAMINOPHEN 325MG TABLET PO PRN (22:39)
[2022-07-26] VITALS: BP 148/35
[2022-07-26] MEDS: ALBUTEROL (0.083%) 2.5MG/3ML NEB HHN SCH ×3 (01:43→15:51)
[2022-07-26] MEDS: IPRATROPIUM BROMIDE (0.02%) 0.5MG/2.5ML NEB HHN SCH ×2 (01:43→10:31)
[2022-07-26] MEDS: GUAIFENESIN 200MG/10ML SUGAR FREE UDC NG SCH ×4 (06:07→16:53)
[2022-07-26] MEDS: INSULIN LISPRO 100 UNITS/ML SUBCUT SCH ×4 (07:40→20:59)
[2022-07-26] MEDS: BLOOD SUGAR DIAGNOSTIC STRIP TEST SCH ×4 (07:40→20:59)
[2022-07-26 08:00] VITALS: BP 149/37
[2022-07-26] MEDS: FUROSEMIDE 40MG/4ML VIAL IVP SCH (09:01)
[2022-07-26] MEDS: FAMOTIDINE 20MG/2ML VIAL IV SCH (09:01)
[2022-07-26] MEDS: HYDRALAZINE HCL 25MG TABLET PO SCH ×2 (10:05→21:23)
[2022-07-26] MEDS: AMLODIPINE 5MG TABLET PO SCH (10:06)
[2022-07-26 12:00] VITALS: BP 148/50
[2022-07-26] MEDS: CEFTRIAXONE 1,000 MG in DEXTROSE 5% WATER 50 ML IV SCH (15:38)
[2022-07-26 16:00] VITALS: BP 129/38
[2022-07-26 20:00] VITALS: BP 155/49
[2022-07-27] VITALS: BP 152/30
[2022-07-27] MEDS: GUAIFENESIN 200MG/10ML SUGAR FREE UDC NG SCH ×3 (01:36→11:18)
[2022-07-27 04:00] VITALS: BP 127/30
[2022-07-27] MEDS: INSULIN LISPRO 100 UNITS/ML SUBCUT SCH ×4 (06:05→21:59)
[2022-07-27] MEDS: BLOOD SUGAR DIAGNOSTIC STRIP TEST SCH ×4 (06:05→21:59)
[2022-07-27 08:00] VITALS: BP 153/56
[2022-07-27] MEDS: FUROSEMIDE 40MG/4ML VIAL IVP SCH (08:20)
[2022-07-27] MEDS: AMLODIPINE 5MG TABLET PO SCH (08:21)
[2022-07-27] MEDS: FAMOTIDINE 20MG TABLET PO SCH (08:21)
[2022-07-27] MEDS: HYDRALAZINE HCL 25MG TABLET PO SCH ×2 (08:21→21:42)
[2022-07-27 11:03] LABS: BASOPHILS % 0.5 % (0.0-2.0); EOSINOPHILS % 6.2 % (0.0-5.0); HEMATOCRIT. 26.7 % (42.0-52.0); HEMOGLOBIN. 8.3 g/dL (14.0-18.0); MEAN CORPUSCULAR HEMOGLOBIN 27.5 pg (28.0-32.0); MEAN PLATELET VOLUME 8.6 fl (7.4-10.4); MONOCYTES % 6.6 % (2.0-8.0); NEUTROPHILS % 77.7 % (40.0-76.0); PLATELET 205 x1000/uL (130-400); RED BLOOD CELL COUNT 3.04 mill/uL (4.7-6.1); RED CELL DISTRIBUTION WIDTH 16.1 % (11.6-14.6)
[2022-07-27 12:00] VITALS: BP 140/87
[2022-07-27] MEDS ORDERED: ALBUTEROL (0.083%) 2.5MG/3ML NEB HHN PRN (15:00)
[2022-07-27] MEDS ORDERED: IPRATROPIUM BROMIDE (0.02%) 0.5MG/2.5ML NEB HHN PRN (15:00)
[2022-07-27 16:00] VITALS: BP 157/85
[2022-07-27 20:00] VITALS: BP 154/56
[2022-07-28] VITALS: BP 160/62
[2022-07-28] MEDS: GUAIFENESIN 200MG/10ML SUGAR FREE UDC NG SCH ×4 (00:25→17:06)
[2022-07-28 04:00] VITALS: BP 158/62
[2022-07-28] MEDS: BLOOD SUGAR DIAGNOSTIC STRIP TEST SCH ×4 (06:28→21:35)
[2022-07-28 06:49] LABS: BASOPHILS % 0.9 % (0.0-2.0); EOSINOPHILS % 6.4 % (0.0-5.0); HEMATOCRIT. 26.4 % (42.0-52.0); HEMOGLOBIN. 8.6 g/dL (14.0-18.0); LYMPHOCYTES % 10.6 % (20.0-50.0); MEAN CORPUSCULAR HEMOGLOBIN 27.6 pg (28.0-32.0); MEAN CORPUSCULAR VOLUME 84.2 fL (80.0-94.0); MEAN PLATELET VOLUME 8.7 fl (7.4-10.4); MONOCYTES % 6.8 % (2.0-8.0); NEUTROPHILS % 75.3 % (40.0-76.0); PLATELET 223 x1000/uL (130-400); RED BLOOD CELL COUNT 3.13 mill/uL (4.7-6.1); RED CELL DISTRIBUTION WIDTH 15.7 % (11.6-14.6)
[2022-07-28] MEDS: INSULIN LISPRO 100 UNITS/ML SUBCUT SCH ×4 (07:40→21:40)
[2022-07-28 08:00] VITALS: BP 144/54
[2022-07-28] MEDS: FUROSEMIDE 40MG/4ML VIAL IVP SCH (08:35)
[2022-07-28] MEDS: HYDRALAZINE HCL 25MG TABLET PO SCH ×2 (08:35→21:32)
[2022-07-28] MEDS: AMLODIPINE 5MG TABLET PO SCH (08:35)
[2022-07-28] MEDS: FAMOTIDINE 20MG TABLET PO SCH (08:36)
[2022-07-28 12:00] VITALS: BP 138/50
[2022-07-28 16:00] VITALS: BP 141/52
[2022-07-28 20:00] VITALS: BP 159/59
[2022-07-29] VITALS: BP 161/56
[2022-07-29 04:00] VITALS: BP 161/58
[2022-07-29] MEDS: GUAIFENESIN 200MG/10ML SUGAR FREE UDC NG SCH ×5 (06:00→23:47)
[2022-07-29] MEDS: BLOOD SUGAR DIAGNOSTIC STRIP TEST SCH ×4 (06:30→20:23)
[2022-07-29] MEDS: INSULIN LISPRO 100 UNITS/ML SUBCUT SCH ×4 (07:40→20:23)
[2022-07-29 08:00] VITALS: BP 162/63
[2022-07-29] MEDS: FAMOTIDINE 20MG TABLET PO SCH (08:23)
[2022-07-29] MEDS: FUROSEMIDE 40MG/4ML VIAL IVP SCH (08:23)
[2022-07-29] MEDS: AMLODIPINE 5MG TABLET PO SCH (08:23)
[2022-07-29] MEDS: HYDRALAZINE HCL 25MG TABLET PO SCH ×2 (08:24→20:22)
[2022-07-29 12:00] VITALS: BP 142/55
[2022-07-29 16:00] VITALS: BP_SYST 156; BP_SYST 161; BP_DIAS 64
[2022-07-29 20:00] VITALS: BP 139/43
[2022-07-30] VITALS: BP 120/53
[2022-07-30 04:00] VITALS: BP 114/50
[2022-07-30] MEDS: GUAIFENESIN 200MG/10ML SUGAR FREE UDC NG SCH ×3 (05:42→17:40)
[2022-07-30] MEDS: BLOOD SUGAR DIAGNOSTIC STRIP TEST SCH ×4 (05:42→20:11)
[2022-07-30] MEDS: INSULIN LISPRO 100 UNITS/ML SUBCUT SCH ×4 (07:40→20:15)
[2022-07-30 08:00] VITALS: BP 178/74
[2022-07-30] MEDS: FUROSEMIDE 40MG/4ML VIAL IVP SCH (08:45)
[2022-07-30] MEDS: FAMOTIDINE 20MG TABLET PO SCH (08:45)
[2022-07-30] MEDS: DOCUSATE SODIUM 100MG CAPSULE PO PRN (08:45)
[2022-07-30] MEDS: HYDRALAZINE HCL 25MG TABLET PO SCH ×2 (08:46→18:15)
[2022-07-30] MEDS: AMLODIPINE 5MG TABLET PO SCH (08:46)
[2022-07-30 12:00] VITALS: BP 166/55
[2022-07-30 16:00] VITALS: BP 124/58
[2022-07-30 20:00] VITALS: BP 156/69
[2022-07-31] VITALS (7 sets, daily range): BP systolic 153–168; BP diastolic 57–75
[2022-07-31] MEDS: GUAIFENESIN 200MG/10ML SUGAR FREE UDC NG SCH ×4 (00:42→17:55)
[2022-07-31] MEDS: HYDRALAZINE HCL 25MG TABLET PO SCH (00:42)
[2022-07-31] MEDS: BLOOD SUGAR DIAGNOSTIC STRIP TEST SCH ×4 (05:40→21:00)
[2022-07-31] MEDS: INSULIN LISPRO 100 UNITS/ML SUBCUT SCH ×4 (05:40→21:00)
[2022-07-31 06:34] LABS: BASOPHILS % 0.9 % (0.0-2.0); EOSINOPHILS % 4.4 % (0.0-5.0); HEMATOCRIT. 26.7 % (42.0-52.0); HEMOGLOBIN. 8.7 g/dL (14.0-18.0); LYMPHOCYTES % 10.6 % (20.0-50.0); MEAN CORPUSCULAR HEMOGLOBIN 27.6 pg (28.0-32.0); MEAN CORPUSCULAR VOLUME 84.1 fL (80.0-94.0); MEAN PLATELET VOLUME 8.7 fl (7.4-10.4); MONOCYTES % 5.9 % (2.0-8.0); NEUTROPHILS % 78.2 % (40.0-76.0); PLATELET 278 x1000/uL (130-400); RED BLOOD CELL COUNT 3.17 mill/uL (4.7-6.1); RED CELL DISTRIBUTION WIDTH 15.9 % (11.6-14.6)
[2022-07-31] MEDS: DOCUSATE SODIUM 100MG CAPSULE PO PRN (08:54)
[2022-07-31] MEDS: FAMOTIDINE 20MG TABLET PO SCH (08:54)
[2022-07-31] MEDS: FUROSEMIDE 40MG/4ML VIAL IVP SCH (08:54)
[2022-07-31] MEDS: AMLODIPINE 5MG TABLET PO SCH ×2 (08:54→17:23)
[2022-07-31] MEDS: HYDRALAZINE HCL 50MG TABLET PO SCH ×2 (10:50→17:23)
[2022-08-01 00:05] VITALS: BP 165/69
[2022-08-01] MEDS: HYDRALAZINE HCL 50MG TABLET PO SCH ×2 (00:28→08:15)
[2022-08-01] MEDS: GUAIFENESIN 200MG/10ML SUGAR FREE UDC NG SCH ×4 (00:33→16:27)
[2022-08-01 04:00] VITALS: BP 162/61
[2022-08-01] MEDS: BLOOD SUGAR DIAGNOSTIC STRIP TEST SCH ×4 (05:29→21:43)
[2022-08-01] MEDS: INSULIN LISPRO 100 UNITS/ML SUBCUT SCH ×4 (05:29→21:48)
[2022-08-01 06:23] LABS: BASOPHILS % 0.9 % (0.0-2.0); EOSINOPHILS % 3.7 % (0.0-5.0); HEMATOCRIT. 26.2 % (42.0-52.0); HEMOGLOBIN. 8.5 g/dL (14.0-18.0); MEAN CORPUSCULAR HEMOGLOBIN 27.2 pg (28.0-32.0); MEAN CORPUSCULAR VOLUME 83.8 fL (80.0-94.0); MEAN PLATELET VOLUME 8.6 fl (7.4-10.4); MONOCYTES % 5.3 % (2.0-8.0); NEUTROPHILS % 80.1 % (40.0-76.0); PLATELET 262 x1000/uL (130-400); RED BLOOD CELL COUNT 3.13 mill/uL (4.7-6.1); RED CELL DISTRIBUTION WIDTH 15.7 % (11.6-14.6)
[2022-08-01 08:00] VITALS: BP 165/66
[2022-08-01] MEDS: AMLODIPINE 5MG TABLET PO SCH ×2 (08:14→16:27)
[2022-08-01] MEDS: FAMOTIDINE 20MG TABLET PO SCH (08:14)
[2022-08-01] MEDS: FUROSEMIDE 40MG/4ML VIAL IVP SCH (08:15)
[2022-08-01] MEDS ORDERED: HYDRALAZINE HCL 50MG TABLET PO NR (09:00)
[2022-08-01 12:00] VITALS: BP 155/64
[2022-08-01] MEDS: HYDRALAZINE HCL 100MG TABLET PO SCH ×2 (14:44→21:40)
[2022-08-01 16:00] VITALS: BP 147/59
[2022-08-01 20:00] VITALS: BP 158/63
[2022-08-02] VITALS (14 sets, daily range): BP systolic 114–166; BP diastolic 59–87
[2022-08-02] MEDS: GUAIFENESIN 200MG/10ML SUGAR FREE UDC NG SCH ×4 (06:00→16:15)
[2022-08-02] MEDS: HYDRALAZINE HCL 100MG TABLET PO SCH ×3 (06:26→21:44)
[2022-08-02] MEDS: BLOOD SUGAR DIAGNOSTIC STRIP TEST SCH ×4 (06:29→21:52)
[2022-08-02] MEDS ORDERED: FUROSEMIDE 40MG/4ML VIAL IVP NR (07:15)
[2022-08-02] MEDS: INSULIN LISPRO 100 UNITS/ML SUBCUT SCH ×4 (07:40→21:55)
[2022-08-02 09:07] LABS: BASOPHILS % 0.6 % (0.0-2.0); EOSINOPHILS % 3.1 % (0.0-5.0); HEMOGLOBIN. 8.4 g/dL (14.0-18.0); LYMPHOCYTES % 9.7 % (20.0-50.0); MEAN CORPUSCULAR HEMOGLOBIN 27.5 pg (28.0-32.0); MEAN PLATELET VOLUME 8.3 fl (7.4-10.4); MONOCYTES % 4.6 % (2.0-8.0); PLATELET 282 x1000/uL (130-400); RED BLOOD CELL COUNT 3.06 mill/uL (4.7-6.1)
[2022-08-02 09:09] LABS: BG BASE EXCESS -0.4 mmol/L (-2.0-2.0); BG CARBOXYHEMOGLOBIN 0.8 % (0.5-1.5); BG HCO3 ACT 26.6 mmol/L (22.0-26.0); BG METHEMOGLOBIN 0.1 % (0.0-1.5); BG OXYGEN SATURATION 89.9 % (92.0-98.5); BG OXYHEMOGLOBIN 89.1 % (94.0-97.0); BG PH 7.302 (7.350-7.450); BG PO2 63.5 mmHg (75.0-100.0); BG SAMPLE SITE RIGHT BRACHIAL; BG TOTAL HEMOGLOBIN 10.5 g/dL (12.0-18.0); BG VENT MODE NASAL CANNULA
[2022-08-02] MEDS: FUROSEMIDE 40MG/4ML VIAL IVP SCH (10:11)
[2022-08-02] MEDS: DOCUSATE SODIUM 100MG CAPSULE PO PRN (10:12)
[2022-08-02] MEDS: FAMOTIDINE 20MG TABLET PO SCH (10:12)
[2022-08-02] MEDS: AMLODIPINE 5MG TABLET PO SCH ×2 (10:12→16:15)
[2022-08-02] MEDS ORDERED: LIDOCAINE HCL 1% 10 MG/ML 10ML VIAL ONE (10:25)
[2022-08-02] MEDS ORDERED: CEFTRIAXONE 1 G PREMIX 50 ML IV SCH (10:30)
[2022-08-02 13:13] LABS: INR 1.2; PROTHROMBIN TIME 12.5 sec (9.6-11.0)
[2022-08-02 14:06] LABS: HEPATITIS B SURFACE ANTIGEN NEGATIVE
[2022-08-02] MEDS: CEFTRIAXONE 1,000 MG in DEXTROSE 5% WATER 50 ML IV SCH (16:05)
[2022-08-03] VITALS: BP 147/51
[2022-08-03 04:00] VITALS: BP 136/56
[2022-08-03 06:00] LABS: BASOPHILS % 0.8 % (0.0-2.0); HEMOGLOBIN. 8.3 g/dL (14.0-18.0); LYMPHOCYTES % 8.9 % (20.0-50.0); MEAN CORPUSCULAR HEMOGLOBIN 27.3 pg (28.0-32.0); MEAN CORPUSCULAR VOLUME 85.2 fL (80.0-94.0); MEAN PLATELET VOLUME 8.4 fl (7.4-10.4); MONOCYTES % 5.4 % (2.0-8.0); NEUTROPHILS % 82.9 % (40.0-76.0); PLATELET 256 x1000/uL (130-400); RED BLOOD CELL COUNT 3.05 mill/uL (4.7-6.1); RED CELL DISTRIBUTION WIDTH 16.1 % (11.6-14.6)
[2022-08-03] MEDS: GUAIFENESIN 200MG/10ML SUGAR FREE UDC NG SCH ×2 (06:00)
[2022-08-03] MEDS: HYDRALAZINE HCL 100MG TABLET PO SCH (06:04)
[2022-08-03] MEDS: BLOOD SUGAR DIAGNOSTIC STRIP TEST SCH (06:18)
[2022-08-03] MEDS: INSULIN LISPRO 100 UNITS/ML SUBCUT SCH (07:40)
[2022-08-03 08:00] VITALS: BP 116/59
[2022-08-03 08:32] LABS: BG BASE EXCESS -1.2 mmol/L (-2.0-2.0); BG CARBOXYHEMOGLOBIN 0.7 % (0.5-1.5); BG DEOXYHEMOGLOBIN 7.7 % (0.0-5.0); BG FRACTION INSPIRED OXYGEN 28; BG HCO3 ACT 25.8 mmol/L (22.0-26.0); BG METHEMOGLOBIN 0.3 % (0.0-1.5); BG OXYGEN SATURATION 92.2 % (92.0-98.5); BG OXYHEMOGLOBIN 91.3 % (94.0-97.0); BG PCO2 55.7 mmHg (35.0-45.0); BG PH 7.284 (7.350-7.450); BG PO2 65.6 mmHg (75.0-100.0); BG SAMPLE SITE RIGHT BRACHIAL; BG TOTAL HEMOGLOBIN 8.7 g/dL (12.0-18.0); BG VENT MODE NASAL CANNULA
[2022-08-03] MEDS: AMLODIPINE 5MG TABLET PO SCH (08:32)
[2022-08-03] MEDS: FAMOTIDINE 20MG TABLET PO SCH (08:32)
[2022-08-03] MEDS: FUROSEMIDE 40MG/4ML VIAL IVP SCH (08:32)
[2022-08-03 11:27] VITALS: BP 138/59
[2022-08-03] MEDS: CEFTRIAXONE 1,000 MG in DEXTROSE 5% WATER 50 ML IV SCH (11:30)
[2022-08-03 11:52] VITALS: BP 138/59
== END 2022-08-03 14:29 | DRG 871 ==
LOC: ER 13:45 → MICUSO 16:12 → EDBEDREQTM 16:14 → EDBEDREQSVC 16:14 → EDBEDREQ 16:14 → SUPCPDRO 16:52 → MICUNO 07-12 03:39 → 7WST 07-13 20:36 → CVICU 07-18 00:31 → 7WST 07-21 17:33
PROVIDERS: ADMIT Internal Medicine Nephrology; ATTEND Internal Medicine Nephrology
PROC: 5A1935Z Respiratory Ventilation, Less than 24 Consecutive Hours (ICD-10-PCS; 2022-07-12)
PROC: 0BH18EZ Insertion of Endotracheal Airway into Trachea, Via Natural or Artificial Opening Endoscopic (ICD-10-PCS; 2022-07-12)
PROC: 5A1D70Z Performance of Urinary Filtration, Intermittent, Less than 6 Hours Per Day (ICD-10-PCS; principal; 2022-07-13)
PROC: 02HV33Z Insertion of Infusion Device into Superior Vena Cava, Percutaneous Approach (ICD-10-PCS; 2022-07-13)
PROC: B548ZZA Ultrasonography of Superior Vena Cava, Guidance (ICD-10-PCS; 2022-07-13)
PROC: 5A1D70Z Performance of Urinary Filtration, Intermittent, Less than 6 Hours Per Day (ICD-10-PCS; 2022-07-14)
PROC: 5A1D70Z Performance of Urinary Filtration, Intermittent, Less than 6 Hours Per Day (ICD-10-PCS; 2022-07-15)
PROC: 5A1D70Z Performance of Urinary Filtration, Intermittent, Less than 6 Hours Per Day (ICD-10-PCS; 2022-07-17)
PROC: 5A1945Z Respiratory Ventilation, 24-96 Consecutive Hours (ICD-10-PCS; 2022-07-18)
PROC: 5A12012 Performance of Cardiac Output, Single, Manual (ICD-10-PCS; 2022-07-18)
PROC: 30233N1 Transfusion of Nonautologous Red Blood Cells into Peripheral Vein, Percutaneous Approach (ICD-10-PCS; 2022-07-18)
PROC: 5A1D70Z Performance of Urinary Filtration, Intermittent, Less than 6 Hours Per Day (ICD-10-PCS; 2022-07-19)
PROC: 5A1D70Z Performance of Urinary Filtration, Intermittent, Less than 6 Hours Per Day (ICD-10-PCS; 2022-07-22)
PROC: 5A1D70Z Performance of Urinary Filtration, Intermittent, Less than 6 Hours Per Day (ICD-10-PCS; 2022-07-24)
PROC: 5A1D70Z Performance of Urinary Filtration, Intermittent, Less than 6 Hours Per Day (ICD-10-PCS; 2022-08-02)
PROC: 02HV33Z Insertion of Infusion Device into Superior Vena Cava, Percutaneous Approach (ICD-10-PCS; 2022-08-02)
PROC: B548ZZA Ultrasonography of Superior Vena Cava, Guidance (ICD-10-PCS; 2022-08-02)
DX: A41.9 Sepsis, unspecified organism (principal); G92.8 Other toxic encephalopathy; I50.33 Acute on chronic diastolic (congestive) heart failure; J18.9 Pneumonia, unspecified organism; J96.01 Acute respiratory failure with hypoxia; I46.9 Cardiac arrest, cause unspecified; E87.0 Hyperosmolality and hypernatremia; D61.818 Other pancytopenia; E44.1 Mild protein-calorie malnutrition; B37.49 Other urogenital candidiasis; N18.5 Chronic kidney disease, stage 5; E87.20 Acidosis, unspecified; N17.9 Acute kidney failure, unspecified; I13.2 Hypertensive heart and chronic kidney disease with heart failure and with stage 5 chronic kidney disease, or end stage renal disease; D63.1 Anemia in chronic kidney disease; D69.6 Thrombocytopenia, unspecified; E11.22 Type 2 diabetes mellitus with diabetic chronic kidney disease; D50.9 Iron deficiency anemia, unspecified; E11.51 Type 2 diabetes mellitus with diabetic peripheral angiopathy without gangrene; E03.9 Hypothyroidism, unspecified; I07.1 Rheumatic tricuspid insufficiency; I48.0 Paroxysmal atrial fibrillation; Z20.822 Contact with and (suspected) exposure to COVID-19; K21.9 Gastro-esophageal reflux disease without esophagitis; E87.5 Hyperkalemia; Z99.2 Dependence on renal dialysis; Z78.1 Physical restraint status; T68.XXXA Hypothermia, initial encounter; X31.XXXA Exposure to excessive natural cold, initial encounter
CPT/HCPCS: 31500; 32555; 36415; 36556; 36600; 71045; 76604; 76937; 78580; 80048; 80053; 80061; 80202; 81003; 82375; 82805; 82962; 83036; 83540; 83550; 83605; 83615; 83735; 84145; 84155; 84439; 84443; 84478; 84480; 84481; 84484; 85014; 85018; 85025; 85379; 86705; 86706; 86709; 86803; 86850; 86900; 86920; 87070; 87106; 87340; 87426; 88108; 90935; 92610; 92950; 93005; 93306; 93970; 93971; 94002; 94003; 94640; 94667; 97110; 97116; 97162; 97164; 97166; 97530; 97535; 99291; A6261; C1752; C1760; C9113; J0330; J0696; J0885; J1265; J1642; J1815; J1940; J1956; J2250; J2270; J2543; J2704; J3010; J3370; J3490; J7030; J7060; P9016; A4315